=== PATIENT | male | born 1995 | race Two or more races ===

== ENCOUNTER 2019-05-14 07:40 | Emergency (ER) | payer SELFPAY ==
[~2019-05-14] VITALS: Ht 162.6 cm; Wt 63.5 kg
[2019-05-14 08:00] VITALS: BP 139/85
[2019-05-14] MEDS ORDERED: Sodium Chloride 550 ML IV SCH (08:00)
[2019-05-14] MEDS ORDERED: fentaNYL 100 mcg/2 mL IV ONE (08:00)
[2019-05-14] MEDS ORDERED: Etomidate 40mg/20ml Inj IV ONE (08:00)
--- NOTE | 2019-05-14 08:00 | NUR ---
ED Nurse Note: pt walked in with mom c/o right shoulder deformity and pain. pt is yi speaking and verbalized 10/10 pain on the right shoulder. pt stated he is the gym earlier and was doing an exercise on the pully and the right shoulder became dislocated, pt stated it happend to him twice to the same shoulder. pt is seen by greyson. will continue to monitor
--- NOTE | 2019-05-14 08:02 | Emergency Room Report ---
History of Present Illness General Chief Complaint: Upper Extremity Injury Source: Patient Present Illness HPI The patient was lifting weights this morning and his right shoulder popped. He is unable to lift it at this time. He had a shoulder dislocation one time before. He states it was reduced without any procedural sedation. His pain in the shoulder. There is no numbness. He rates the pain 10/10 aching and sharp. No other trauma. Ther is a scar on the shoulder from prior vaccination. He last ate at 6 PM last night. He denies major medical problems. Right handed. Allergies: Coded Allergies: No Known Allergies (Unverified , 05/14/19) Patient History Past Medical History: see triage record Social History: Denies: smoking Social History Narrative construction Reviewed Nursing Documentation: PMH: Agreed; PSxH: Agreed Nursing Documentation-PMH Past Medical History: No Stated History Review of Systems Constitutional: Denies: fever Respiratory: Denies: shortness of breath Cardiovascular: Denies: chest pain Genitourinary: Reports: see HPI Musculoskeletal: Reports: see HPI Skin: Reports: see HPI Neurological: Reports: see HPI Physical Exam Vital Signs Date Time Temp Pulse Resp B/P (MAP) Pulse Ox O2 Delivery O2 Flow Rate FiO2 05/14/19 07:46 98.1 60 18 139/85 (103) 100 Room Air Sp02 EP Interpretation: reviewed, normal General Appearance: well appearing, no apparent distress, GCS 15 Head: normocephalic Eyes: bilateral eye normal inspection, bilateral eye PERRL ENT: moist mucus membranes, other - Mallampati 1 Neck: full range of motion, supple Respiratory: lungs clear Cardiovascular #1: regular rate, rhythm Cardiovascular #2: 2+ radial (R) - Good capillary refill Gastrointestinal: normal inspection, scaphoid Musculoskeletal: gait/station normal, other - Dimpling right shoulder and unable to lift up right arm Neurologic: alert, oriented x3, distal neuro normal, grossly normal Psychiatric: mood/affect normal Skin: normal color Procedures Joint Reduction Joint Reduction : Consent: Written Joint Reduction Site: shoulder (R) Procedural Sedation: Yes Reduction Attempts: One Pre-Procedure NV Exam: Yes Post-Procedure NV Exam: Yes Post Joint Reduction Film: joint reduced Patient Tolerated: Well Complications: None Progress After etomidate the arm was adducted and raised with some crepitance during reduction. The shoulder was reduced without difficulty. Soon after the patient was able to answer to his name. Procedural Sedation Consent: Written Time out called at: 08:36 Pre-Sedation Assessment: Plan for Sedation Discuss Airway Assessment (Malampati): I Heart: normal Lungs: normal Abdomen: normal Extremities: normal Procedures/Plans: Closed Reduction Plan for Moderate Sedation: Other - Etomidate ASA Score: I Start Time: 08:38 End Time: 08:40 - answers his name Mental Status: Awake Respiration: Unlabored Skin Condition: WNL Abdomen: WNL Nausea: NO Vomiting: NO Medical Decision Making Diagnostic Impression: Primary Impression: Dislocation of right shoulder joint Qualified Codes: S43.004A - Unspecified dislocation of right shoulder joint, initial encounter ER Course The patient presents with deformity and pain of the right shoulder. Differential includes dislocation either anterior posterior, fracture amongst others. Shoulder needs to be reduced. Pre-reduction x-ray is ordered as well as fentanyl and Zofran. Planned sedation agent is etomidate. Shoulder reduced. See procedure note. Immobilizer placed after reduction. Neurovas exam checked by me and normal after reduction. Pain rated at 0/10. Fully awake and understands instructions. Patient stable for outpatient observation and treatment. Rhythm Strip Diag. Results EP Interpretation: yes Rhythm: no PVC's, no ectopy, other - eric Other X-Ray Diagnostic Results Other X-Ray Diagnostic Results #1: X-Ray ordered: R shoulder # of Views/Limited Vs Complete: 4 View Indication: Pain EP Interpretation: Yes Interpretation: no soft tissue swelling, no fractures, other - ant dislocation Impression: Other Electronically Signed by: Electronically signed by Tashi Lui MD Other X-Ray Diagnostic Results #2: X-Ray ordered: R Shoulder # of Views/Limited Vs Complete: 1 View Indication: Other EP Interpretation: Yes Interpretation: no dislocation, no soft tissue swelling, no fractures Impression: No acute disease Electronically Signed by: Electronically signed by Tashi Lui MD Last Vital Signs Date Time Temp Pulse Resp B/P (MAP) Pulse Ox O2 Delivery O2 Flow Rate FiO2 05/14/19 09:38 98.0 60 15 122/65 100 Room Air Status: improved Disposition: HOME, SELF-CARE Condition: Improved Scripts Ibuprofen* (MOTRIN*) 600 Mg Tablet 600 MG ORAL Q6H PRN for For Pain, #16 TAB 0 Refills Prov: Tashi Lui MD 05/14/19 Tashi Lui MD May 14, 2019 08:02
[2019-05-14] MEDS ORDERED: NKM (08:04)
--- NOTE | 2019-05-14 08:06 | NUR ---
ED Nurse Note: ermd ordered fentalyl iv and ivf started. pt hooked on monitor, hr 46, pt conscious and coherent. will continue to monitor.
--- NOTE | 2019-05-14 08:28 | NUR ---
ED Nurse Note: xraym at bedside
[2019-05-14 08:36] VITALS: BP 143/86
--- NOTE | 2019-05-14 08:38 | NUR ---
ED Nurse Note: ERMD on bedside, with respiratory therapist eron ferrer, geovanna newberry, motor room controller, toi coates charge nurse ivonne salcedo as primary nurse. pt is hooked on monitor, with vss. pt is alert and awake. Ermd started the time out @08:36 for procedural sedation + closed reduction right shoulder, etomidate 7mg given iv AT 0837, closed reduction performed, 0838 procedure ended, shoulder immobilizer placed on pt right shoulder. will continue to monitor
--- NOTE | 2019-05-14 08:40 | NUR ---
ED Nurse Note: pt is responsive to verbal stimuli, able to state name. able to tolerate procedure well. pt vss. will continue to monitor.
--- NOTE | 2019-05-14 08:46 | NUR ---
ED Nurse Note: xray at bedside
--- NOTE | 2019-05-14 08:47 | NUR ---
ED Nurse Note: pt able to stated the name and phone number of his friend that is going to pick him up here, tung sy [phone], and will come to the ed after 20 mins.
[2019-05-14] MEDS ORDERED: IBUPROFEN600 MG ORAL (08:52)
[2019-05-14 08:53] VITALS: BP 128/83
--- NOTE | 2019-05-14 09:20 | Diagnostic Imaging Report ---
Indication: Postreduction right shoulder Technique: 2 views of the right shoulder Comparison: 15 minutes earlier Findings: Interim reduction of previously demonstrated right shoulder dislocation, satisfactory anatomic alignment. No definite bony fracture. Impression: Successful reduction of previously demonstrated right shoulder dislocation
--- NOTE | 2019-05-14 09:21 | Diagnostic Imaging Report ---
Indication: Right shoulder pain and trauma Technique: 3 views of the right shoulder Comparison: none Findings: There is anterior dislocation of the right humeral head. No associated fracture demonstrated. Impression: Positive for right shoulder dislocation
--- NOTE | 2019-05-14 09:35 | NUR ---
ED Nurse Note: pt friend on bedside, tung sy
[2019-05-14 09:38] VITALS: BP 122/65
--- NOTE | 2019-05-14 09:38 | NUR ---
ER DISCHARGE NOTE: Patient is cleared to be discharged per ERMD, pt is aox4, on room air, with stable vital signs. pt was given dc and prescription instructions, pt was able to verbalize understanding, pt id band and iv site removed without complications. pt is able to ambulate with steady gait. pt took all belongings.
== END 2019-05-14 09:38 | disposition home or self-care (01) ==
LOC: EDSEX 07:40 → EMR 08:07
DX: S43.004A Unspecified dislocation of right shoulder joint, initial encounter (principal); X50.0XXA Overexertion from strenuous movement or load, initial encounter; Y93.B3 Activity, free weights; Y92.9 Unspecified place or not applicable
CPT/HCPCS: 23655; 73020; 73030; 96361; 96374; 96375; 99283; J2405; J3010; J7040